=== PATIENT | female | born 1970 | race African-American/Black ===

== ENCOUNTER → 2021-01-31 08:38 | Outpatient (CLI) | payer OTHER, SELFPAY ==
--- NOTE | 2021-01-31 | DI.MRI.S_ITS ---
PROCEDURE: MR CERVICAL SPINE WO CON INDICATIONS: Cervicalgia TECHNIQUE: Noncontrast sagittal T1 spin echo and T2 fast spin echo, sagittal STIR, foraminal oblique sagittal T2 fast spin echo, and axial gradient echo or T2 fast spin echo through the cervical spine. COMPARISON: [facility], , SPINE CERVICAL MIN 4VW, 10/30/2011, 16:55. FINDINGS: Image quality: This examination is limited by involuntary motion artifact. Alignment and Curvature: There is reversal of the normal cervical lordosis. No focal AP alignment abnormality is seen. Bone Marrow: Marrow demonstrates normal overall signal. Scattered foci are seen, which are hyperintense on T1-weighted and T2-weighted imaging, which are most consistent with benign vertebral body hemangiomas. Spinal Cord: Visualized spinal cord has normal size and signal. No cerebellar tonsillar herniation. Paraspinous Soft Tissues: No paravertebral masses. Prevertebral soft tissues are normal in thickness. C2-C3: The disc height is well-preserved. Loss of disc signal is seen at this level. A mild degree of generalized disc osteophyte complex is seen. Mild facet joint hypertrophy is seen. Mild bilateral neural foraminal narrowing is seen. Mild central canal narrowing is seen. C3-C4: The disc height is well-preserved. Loss of disc signal is seen at this level. Mild to moderate disc osteophyte complex is seen, which is slightly eccentric to the right. Mild facet joint hypertrophy is seen. There is moderate right-sided and mild left-sided neural foraminal narrowing seen. Mild to moderate central canal narrowing is seen. C4-C5: The disc height is well-preserved. Loss of disc signal is seen at this level. Moderate disc osteophyte complex is seen, which is eccentric to the right. Mild facet joint hypertrophy is seen. There is moderate right-sided and [id number] left-sided neural foraminal narrowing seen. Mild to moderate central canal narrowing is seen. C5-C6: [id number] loss of disc height and disc signal can be seen. There is at least moderate disc osteophyte complex seen, which is eccentric to the right. Mild to moderate facet hypertrophy is seen. Moderate bilateral neural foraminal narrowing is seen. At least moderate central canal narrowing is seen. There is associated mass effect upon the ventral spinal cord. C6-C7: The disc height is well-preserved. Loss of disc signal is seen at this level. A mild to moderate disc osteophyte complex is seen. Mild facet joint hypertrophy is seen. Minimal bilateral neural foraminal narrowing can be seen. Mild central canal narrowing is seen. C7-T1: No significant abnormality is seen. IMPRESSION: Cervical spine degenerative changes are seen, which are worst at the C5-C6 level. Reversal of the normal cervical lordosis is seen. This is commonly observed in patients with muscular spasm. Dictated by: Deep Salvador M.D. on 01/31/2021 at 10:15 Approved by: Deep Salvador M.D. on 01/31/2021 at 10:20
== END ==
PROVIDERS: PCP Nurse Practitioner Family; Referring Provider Nurse Practitioner Family; Visit Provider Nurse Practitioner Family
DX: M54.2 Cervicalgia (principal); M47.812 Spondylosis without myelopathy or radiculopathy, cervical region
CPT/HCPCS: 72141